=== PATIENT | female | born 1940 | race Two or more races ===

== ENCOUNTER 2019-09-18 14:05 | Outpatient (RCR) | payer MEDICARE, BC | END 2019-09-26 | disposition home or self-care (01) | LOC: WCC 14:05 | DX: I73.9 Peripheral vascular disease, unspecified (principal); L97.519 Non-pressure chronic ulcer of other part of right foot with unspecified severity; N18.6 End stage renal disease; Z99.2 Dependence on renal dialysis; E03.9 Hypothyroidism, unspecified; Z85.3 Personal history of malignant neoplasm of breast; Z90.13 Acquired absence of bilateral breasts and nipples; Z88.0 Allergy status to penicillin; Z88.8 Allergy status to other drugs, medicaments and biological substances; Z87.891 Personal history of nicotine dependence | CPT/HCPCS: G0463 ×2 ==

== ENCOUNTER 2019-10-08 13:28 | Outpatient (RCR) | payer MEDICARE, BC | END 2019-10-26 | disposition home or self-care (01) | LOC: WCC 13:28 | DX: L97.512 Non-pressure chronic ulcer of other part of right foot with fat layer exposed (principal); I70.235 Atherosclerosis of native arteries of right leg with ulceration of other part of foot; N18.6 End stage renal disease; I73.89 Other specified peripheral vascular diseases; Z88.0 Allergy status to penicillin; Z88.8 Allergy status to other drugs, medicaments and biological substances; Z90.13 Acquired absence of bilateral breasts and nipples; E03.9 Hypothyroidism, unspecified | CPT/HCPCS: G0463 ==

== ENCOUNTER 2019-11-05 13:37 | Outpatient (RCR) | payer MEDICARE, BC | END 2019-11-26 | disposition home or self-care (01) | LOC: WCC 13:37 | DX: L97.514 Non-pressure chronic ulcer of other part of right foot with necrosis of bone (principal); M86.471 Chronic osteomyelitis with draining sinus, right ankle and foot; I70.234 Atherosclerosis of native arteries of right leg with ulceration of heel and midfoot; Z90.13 Acquired absence of bilateral breasts and nipples; E03.9 Hypothyroidism, unspecified; N18.6 End stage renal disease; Z99.2 Dependence on renal dialysis; Z85.3 Personal history of malignant neoplasm of breast; Z88.0 Allergy status to penicillin; Z88.8 Allergy status to other drugs, medicaments and biological substances; Z91.041 Radiographic dye allergy status; Z79.899 Other long term (current) drug therapy | CPT/HCPCS: G0463 ×2 ==

== ENCOUNTER 2019-12-17 13:53 | Outpatient (RCR) | payer MEDICARE, BC | END 2019-12-27 | disposition home or self-care (01) | LOC: WCC 13:53 | DX: L97.512 Non-pressure chronic ulcer of other part of right foot with fat layer exposed (principal); I70.235 Atherosclerosis of native arteries of right leg with ulceration of other part of foot; N18.6 End stage renal disease; I73.89 Other specified peripheral vascular diseases; Z88.0 Allergy status to penicillin; Z88.8 Allergy status to other drugs, medicaments and biological substances; Z99.2 Dependence on renal dialysis; E03.9 Hypothyroidism, unspecified; Z85.3 Personal history of malignant neoplasm of breast | CPT/HCPCS: 11044; G0463 ==

== ENCOUNTER 2019-12-18 14:17 | Outpatient (RCR) | payer SELFPAY | END 2019-12-27 | disposition home or self-care (01) | LOC: WCC 14:17 | DX: L97.512 Non-pressure chronic ulcer of other part of right foot with fat layer exposed (principal); I70.235 Atherosclerosis of native arteries of right leg with ulceration of other part of foot; N18.6 End stage renal disease; I73.89 Other specified peripheral vascular diseases; Z88.0 Allergy status to penicillin; Z88.8 Allergy status to other drugs, medicaments and biological substances; Z99.2 Dependence on renal dialysis; E03.9 Hypothyroidism, unspecified; Z85.3 Personal history of malignant neoplasm of breast | CPT/HCPCS: G0277 ×4 ==